=== PATIENT | female | born 1935 | race Caucasian/White ===

== ENCOUNTER 2017-05-14 15:22 | Emergency (ER) | payer MEDICARE, BC ==
[~2017-05-14] VITALS: Ht 165.1 cm; Wt 63.5 kg
--- NOTE | 2017-05-14 15:30 | NUR ---
PRESENTS SELF TO ED FOR L HAND AND WRIST PAIN X 2 DAYS AT [facility]. NO INJURY
[2017-05-14 17:25] VITALS: BP 114/70
--- NOTE | 2017-05-14 17:26 | NUR ---
Patient discharged to home in stable condition. Written and verbal after care instructions given. Patient verbalizes understanding of instruction.
== END 2017-05-14 17:26 | disposition home or self-care (01) ==
LOC: ER 15:26
DX: S60.222A Contusion of left hand, initial encounter (principal); E78.5 Hyperlipidemia, unspecified; X58.XXXA Exposure to other specified factors, initial encounter; Y93.71 Activity, boxing; Y92.89 Other specified places as the place of occurrence of the external cause; Y99.9 Unspecified external cause status
CPT/HCPCS: 73130; 99284; A4606; Z7610